=== PATIENT | male | born 1960 | race African-American/Black ===

== ENCOUNTER → 2020-11-18 | Outpatient (CLI) | payer MEDICARE, MEDICAID ==
[~2020-11-18] MED LIST: ASPI81TA45 PO; CALC0.25 PO; CARV3.1212 PO; GLIP5TAB10 PO; METO5TAB5 PO; MIDO10TA PO; SEVE800T8 PO; TORS10TA4 PO; [UNRECOGNIZED DRUG - OTHER] PO; iron PO
[2020-11-18 10:31] LABS: MEAN CORPUSCULAR HEMOGLOBIN 24.3 pg (27.5-34.5); MEAN CORPUSCULAR HGB CONC 30.8 g/dL (33.2-36.2); MEAN PLATELET VOLUME 9.1 fL (7.4-10.4); PLATELET COUNT 70 x10^3/uL (130-400); RED BLOOD COUNT 5.54 x10^6/uL (4.38-5.82); RED CELL DISTRIBUTION WIDTH 17.4 % (9.4-14.8)
[2020-11-18 10:48] LABS: INTERNATIONAL NORMALIZED RATIO 1.33 (0.93-1.1); PROTHROMBIN TIME 14.1 Seconds (9.6-11.5)
[2020-11-18 10:56] LABS: MD YES
[2020-11-18 10:59] LABS: ANISOCYTOSIS 1+; BASOS#(MANUAL) 0.12 x10^3/uL (0-0.1); BASOS% (MANUAL) 2 % (0-1); EOS#(MANUAL) 0.41 x10^3/uL (0.0-0.4); EOS% (MANUAL) 7 % (1-7); LYMPH#(MANUAL) 0.99 x10^3/uL (1-3.4); LYMPHS% (MANUAL) 17 % (22-44); MONOS#(MANUAL) 0.64 x10^3/uL (0.3-2.7); MONOS% (MANUAL) 11 % (2-9); SEG#(MANUAL) 3.65 x10^3/uL (1.8-6.8); SEGS% (MANUAL) 63 % (42-75)
[2020-11-18 11:00] LABS: <PLATELET ESTIMATE> DECREASED; GIANT PLATELETS 1+; HYPOCHROMIA 1+; LARGE PLATELETS 1+; MICROCYTOSIS 1+; TARGET CELLS 1+
[2020-11-18 11:01] LABS: POLYCHROMASIA 1+
[2020-11-18 12:23] LABS: ALBUMIN 3.1 g/dL (3.4-5.0); ANION GAP 5 mmol/L (5-15); CALCIUM 9.2 mg/dL (8.5-10.1); CHLORIDE 100 mmol/L (98-107)
[2020-11-18 12:28] LABS: ALANINE AMINOTRANSFERASE 20 U/L (12-78); ALKALINE PHOSPHATASE 78 U/L (45-117); BILIRUBIN,TOTAL 1.8 mg/dL (0.2-1.0); CREATININE 4.67 mg/dL (0.7-1.3); TOTAL PROTEIN 7.4 g/dL (6.4-8.2)
== END | disposition home or self-care (01) ==
LOC: STAR 09:10
PROVIDERS: ATTEND Surgery
DX: Z01.812 Encounter for preprocedural laboratory examination (principal); Z20.822 Contact with and (suspected) exposure to COVID-19; N18.6 End stage renal disease; I25.2 Old myocardial infarction
CPT/HCPCS: 36415; 80053; 85025; 85610; 85730; 93005; U0003

== ENCOUNTER 2020-11-23 11:01 | Day surgery (SDC) | payer MEDICARE, MEDICAID ==
[~2020-11-23] VITALS: Ht 180.3 cm; Wt 85.5 kg
[2020-11-23] MEDS ORDERED: CHLORHEXIDINE 15 ML UDC ONE (11:54)
[2020-11-23] MEDS ORDERED: PAPAVERINE 30 MG/ML, 2ML ONE (12:08)
[2020-11-23] MEDS ORDERED: LIDOCAINE/PF 1%, 30ML ONE (12:08)
[2020-11-23] MEDS ORDERED: BUPIVACAINE/PF 0.25% ONE (12:08)
[2020-11-23] MEDS ORDERED: HEPARIN 1,000 UNITS/ML, 10ML ONE (12:08)
[2020-11-23] MEDS ORDERED: THROMBIN 5,000 UNIT VIAL TP ONE (12:08)
[2020-11-23] MEDS ORDERED: CHLORHEXIDINE 15 ML UDC PO ONE (12:30)
[2020-11-23] MEDS ORDERED: SODIUM CHLORIDE 0.9% 1,000 ML IV SCH (12:30)
[2020-11-23 12:41] LABS: ALANINE AMINOTRANSFERASE 19 U/L (12-78); ALBUMIN 3.2 g/dL (3.4-5.0); ANION GAP 11 mmol/L (5-15); CALCIUM 9.5 mg/dL (8.5-10.1); CHLORIDE 100 mmol/L (98-107); CREATININE 4.76 mg/dL (0.7-1.3)
[2020-11-23 12:43] LABS: ALKALINE PHOSPHATASE 73 U/L (45-117); BILIRUBIN,TOTAL 2.5 mg/dL (0.2-1.0); TOTAL PROTEIN 7.4 g/dL (6.4-8.2)
[2020-11-23] MEDS ORDERED: MIDAZOLAM 1 MG/ML, 2ML ONE (13:55)
[2020-11-23] MEDS ORDERED: FENTANYL PF 100 MCG/2ML ONE (13:55)
[2020-11-23] MEDS ORDERED: CEFAZOLIN 1,000 MG ONE (14:17)
[2020-11-23] MEDS ORDERED: PROPOFOL 10 MG/ML, 20ML ONE (14:17)
[2020-11-23] MEDS ORDERED: ONDANSETRON 2MG/ML, 2ML ONE (14:17)
[2020-11-23] MEDS ORDERED: OXYcodone 5 MG/5 ML ORAL.SOL UDC PO PRN (14:30)
[2020-11-23] MEDS ORDERED: HYDROmorphone 1 MG/ML, 1ML INJ IVPush PRN (14:30)
[2020-11-23] MEDS ORDERED: HYDROcodone/APAP 7.5-325MG/15ML UDC PO PRN (14:30)
[2020-11-23] MEDS ORDERED: VASOPRESSIN 20 UNIT/ML, 1ML ONE (14:30)
[2020-11-23] MEDS ORDERED: FENTANYL PF 100 MCG/2ML IV PRN (14:30)
[2020-11-23] MEDS ORDERED: MEPERIDINE/PF 25MG/0.5ML IVPush PRN (14:30)
[2020-11-23] MEDS ORDERED: EPHEDRINE 50 MG/ML, 1ML ONE (14:30)
[2020-11-23] MEDS ORDERED: DEXAMETHASONE 4 MG/ML, 1ML ONE (14:30)
[2020-11-23] MEDS ORDERED: PROMETHAZINE 25 MG/ML, 1ML IVPush PRN (14:30)
[2020-11-23] MEDS ORDERED: ONDANSETRON 2MG/ML, 2ML IVPush PRN (14:30)
[2020-11-23] MEDS ORDERED: MIDAZOLAM 1 MG/ML, 2ML IVPush ONE (15:00)
== END 2020-11-23 17:55 | disposition home or self-care (01) ==
LOC: OUT 11:01
PROVIDERS: ATTEND Surgery
DX: I13.2 Hypertensive heart and chronic kidney disease with heart failure and with stage 5 chronic kidney disease, or end stage renal disease (principal); E10.22 Type 1 diabetes mellitus with diabetic chronic kidney disease; N18.6 End stage renal disease; I50.9 Heart failure, unspecified; G40.909 Epilepsy, unspecified, not intractable, without status epilepticus; Z79.899 Other long term (current) drug therapy; Z79.82 Long term (current) use of aspirin; Z88.8 Allergy status to other drugs, medicaments and biological substances; Z72.89 Other problems related to lifestyle; Z99.2 Dependence on renal dialysis; Z98.890 Other specified postprocedural states
CPT/HCPCS: 36415; 36821; 80053; J0690; J1100; J1644; J2250; J2405; J2704; J3010; J7030; J2440